=== PATIENT | male | born 1995 | race Hispanic/Latino ===

== ENCOUNTER 2017-01-06 19:25 | Emergency (ER) | payer SELFPAY ==
[~2017-01-06] VITALS: Ht 177.8 cm; Wt 72.7 kg
[~2017-01-06 19:25] MED LIST: CITA20TA PO
[2017-01-06 19:29] VITALS: BP 135/87; PULSE 87; RESP 20; O2SAT 99
--- NOTE | 2017-01-06 19:48 | ED.REPORT ---
HPI-Headache Date of Service January 06, 2017 ED Provider: Scotty Velazquez MD Patient is a 21 year old male who presents to the ED with a severe headache that began at 1300. His pain comes in waxes and wanes and has become increasingly worse since onset. The pain is located in the center of his head and he describes the pain as a pressure. He reports nausea,vomiting, chills, photophobia and left arm numbness. He denies any recent head injury. This is the worst headache the patient has ever experienced. He denies any recent illnesses. He denies any auras or visual disturbances. Nursing Notes Stated Complaint: HEADACHE,VOMITING Chief Complaint: Headache Nursing Notes Reviewed: Yes Allergies: Coded Allergies: No Known Allergies (Verified Allergy, Unknown, 01/06/17) Scheduled Citalopram-Expunged Drug, Do Not Renew! (Citalopram-Expunged Drug, Do Not Renew! ) 20 Mg Tablet 20 MG PO DAILY General Time Seen by MD: 19:38 Chief Complaint Headache Hx Obtained From: Patient Arrived By: Walk-in Sudden in Onset?: Yes Onset Occurred: 5 - 8 hours ago Symptom Duration: Since onset Location: : Frontal left: Frontal right Quality: Pressure Severity: Current: Moderate Severity: Maximum: Moderate Associated with: Reports: Nausea, Vomiting, Denies: Aura motor, Aura sensory, Aura visual, Visual disturbance Pertinent Negative: Pt denies other symptoms Recent Healthcare: No recent doctor visit, No recent hospitalization Risk-Headache )( SAH Risk Stratification RF Statements: Risk factors reviewed )( IC Mass Risk Stratification RF Statements: Risk factors reviewed Past Medical History Past Medical History None reported. Past Surgical History None reported. Smoking History Never Smoker Social History Alcohol Use: Denies alcohol use Drug Use: Denies drug use Other Social History: Good social support, Local resident Ambulatory Status Independent Review of Systems Constitutional: Denies: Chills, Fever Eyes: Reports: Photophobia, Denies: Blurred bilateral, Visual loss bilateral GI: Reports: Nausea, Vomiting Neurologic: Reports: Headache, Denies: Change LOC, Syncope, Vision change Complete sys rev & neg: except as marked. Physical Exam Initial Vital Signs Vital Signs (First) Date Time Temp Pulse Resp B/P Pulse Ox O2 Delivery O2 Flow Rate FiO2 01/06/17 19:29 36.0 87 20 135/87 99 Room Air Initial VS: Reviewed Respiratory: Breath sounds normal, Clear to auscultation, No respiratory distress Cardiovascular: Regular rate & rhythm, Heart sounds normal, Intact distal pulses Extremities: Vascular intact, Neuro intact, No swelling, No tenderness Skin: Warm, Dry, No cyanosis Psychiatric: Mood/affect normal, Behavior normal, Normal thought content General/Constitutional: Awake, Alert, No acute distress, Well appearing, Well developed Head / Eyes: Atraumatic, Normocephalic, PERRL Neck: Atraumatic, Supple, Full range of motion Neurologic: Oriented X3, Speech NL, No motor deficits, No sensory deficits, CN II - XII intact, Reflexes equal bilat, Cerebellar NL, Memory NL NEURO: Thought is linear and organized. Interpretation & Diagnostics Lab Results Interpretation Result Diagram: 01/06/17 1950 01/06/17 1950 Test 01/06/17 19:50 White Blood Count 8.8th/mm3 (3.8-10.1) Red Blood Count 4.99mil/mm3 (4.40-5.80) Hemoglobin 14.2g/dL (13.8-17.2) Hematocrit 41.3% (41.0-50.0) Mean Corpuscular Volume 82.8fL (81-100) Mean Corpuscular Hemoglobin 28.5pg (27.0-35.0) Mean Corpuscular Hemoglobin Concent 34.4% (32.0-37.0) Red Cell Distribution Width 12.9% (12.3-15.4) Platelet Count 217bil/L (150-400) Neutrophils (%) (Auto) 58.6% (40-74) Lymphocytes (%) (Auto) 31.8% (14-46) Monocytes (%) (Auto) 7.5% (4-12) Eosinophils (%) (Auto) 1.7% (0-5) Basophils (%) (Auto) 0.3% (0-3) Erythrocyte Sedimentation Rate 1mm/hr (0-15) Hold Purple Top Tube Received (Received) Hold Blue Top Tube Received (Received) Sodium Level 140mEq/L (134-144) Potassium Level 3.8mEq/L (3.5-5.2) Chloride Level 101mEq/L (97-108) Carbon Dioxide Level 25mmol/L (18-29) Blood Urea Nitrogen 12mg/dL (6-20) Creatinine 1.01mg/dL (0.76-1.27) Estimat Glomerular Filtration Rate 97mL/min (>59) Glucose Level 126mg/dL (60-99) Calcium Level 9.4mg/dL (8.5-10.1) Hold [place] Top Tube Received (Received) Hold [place] Top Tube Received (Received) CT Head Interpretation IMPRESSION: No acute intracranial disease process. Dictated by: Celina Adames MD, PhD on 01/06/2017 at 19:59 Study: Head CT no contrast Interpretation / Wet Read by: Interpret - Radiologist Re-Eval/Medical Decision Med Decision/Clinical Course In summary, the patient is a 21-year-old male with past medical history significant for migraine headaches, who presents with gradual onset headache that is intermittent and exacerbated by light and sound. Our primary and secondary assessment reveals an awake, alert patient in no acute distress. Hemodynamically stable and afebrile. Exam reveals normal neurologic exam. CT head: No acute intracranial disease process. Suspect the patient's headache represents a migraine or tension type headache. Considered other causes of headache to include: Subdural hemorrhage, subarachnoid hemorrhage, BAKER HEAD tumor, meningitis, encephalitis, venous sinus thrombosis, dissection, temporal arteritis, intracranial hypertension ( psuedotumor cerebri), sinusitis or cervicalgia, although these are less likely based on the history, exam and radiographic findings as noted above. Based on this, I feel that further imaging would be low yield and is not warranted at this time. Discussed the risks and benefits of this with the patient who is in agreement. Also discussed with the patient at length that if symptoms change, worsen, or persist, should return to the ER for reevaluation. They understand and agree with the plan. Given the patient's workup, feel they are safe for discharge. The patient was given IV fluids, Reglan/Benadryl and Toradol with excellent resolution of his symptoms. Prior to discharge follow-up and return precautions were reviewed in detail with the patient who verbalized understanding and agreement with the plan. The patient was discharged in stable condition. Re-Evaluation/Progress : Time of Eval: 20:24 )( Patient Status: Condition improved Re-Evaluation/Progress Note: Patient is rechecked. He is informed of his results and diagnosis. All questions are addressed. He understands and agrees with the intended treatment plan. Counseled Regarding: Diagnosis, Need for follow-up, When/why to return to ED Discharge & Departure Impression: Primary Impression: Migraine headache Migraine type: unspecified Status migrainosus presence: without status migrainosus Intractability: not intractable Qualified Code: G43.909 - Migraine, unspecified, not intractable, without status migrainosus Additional Impressions: Sensitivity to light Nausea and vomiting Vomiting type: unspecified Vomiting Intractability: unspecified Qualified Code: R11.2 - Nausea with vomiting, unspecified Disposition: Home Discharge Condition All VS Reviewed: Yes Condition: Improved Patient Instructions: Migraine Headache (ED) Additional Instructions: Thank you for seeking care at the emergency room. It is difficult for us to make definitive diagnoses in the ED but we believe that you are experiencing a migraine headache. Our primary goal today in the ED was to evaluate you for any life-threatening conditions. Your evaluation was reassuring. You will be discharged with a prescription for 600 mg of ibuprofen. Please take as directed. You should follow-up with your primary doctor in the next week. You should return to the ED immediately if you develop any neck stiffness, persistent pain, fevers, vomiting, lightheadedness, weakness or any other concerning signs or symptoms. Thank you for letting us partake in your care today. Referrals: Kanika Lujan MD (PCP) Scribe Attestation Portions of this note were transcribed by Jeannie Montilla. I, Dr. Velazquez personally performed the history, physical exam and medical decision-making; I reviewed and confirmed the accuracy of the information in the transcribed note. Signed by: Miguelito Rinaldi, 01/06/172055. copies to: Kanika Lujan MD, Beck O MD January 06, 2017 19:48 JEANNIE MONTILLA January 06, 2017 20:27
--- NOTE | 2017-01-06 20:02 | DRSVH ---
PROCEDURE: CT BRAIN WITHOUT CONTRAST ([id number]) INDICATIONS: sudden onset extreme headache. TECHNIQUE: Noncontrast 4.5 mm thick angled axial sections acquired from the foramen magnum to the vertex, with c oronal reformats. COMPARISON: None. FINDINGS: Image quality: Excellent. CSF spaces: Basal cisterns are patent. No extra-axial fluid collections. Ventricles are normal in size and shape. Brain: No midline shift. No intracranial masses or hemorrhage. Olivo-white matter interface is norm al. Skull and face: Calvarium and visualized facial bones are intact, without suspicious lesions. Sinuses: Visualized sinuses and mastoids are clear. IMPRESSION: No acute intracranial disease process. Dictated by: Celina Adames MD, PhD on 01/06/2017 at 19:59 Approved by: Celina Adames MD, PhD on 01/06/2017 at 20:00
[2017-01-06 20:21] LABS: BASOPHILS % (AUTO) 0.3 % (0-3); EOSINOPHILS % (AUTO) 1.7 % (0-5); MONOCYTES % (AUTO) 7.5 % (4-12); Mean Corpuscular Hemoglobin 28.5 pg (27.0-35.0); Mean Corpuscular Volume 82.8 fL (81-100); NEUTROPHILS % (AUTO) 58.6 % (40-74); Platelet Count 217 bil/L (150-400)
[2017-01-06] MEDS ORDERED: 0.9% Sodium Chloride 1,000 ML IV ONE (20:27)
[2017-01-06] MEDS ORDERED: MetoCLOpramide 5 mg/mL 2 mL Inj IVPUSH ONE (20:30)
[2017-01-06 20:42] LABS: ERYTHROCYTE SEDIMENTATION RATE 1 mm/hr (0-15)
[2017-01-06] MEDS ORDERED: IBUP-1827 PO (21:47)
[2017-01-06 21:52] VITALS: BP 135/82; PULSE 81; RESP 16; O2SAT 99
== END 2017-01-06 21:53 | disposition home or self-care (01) ==
LOC: SED 19:25
DX: G43.909 Migraine, unspecified, not intractable, without status migrainosus (principal); H53.149 Visual discomfort, unspecified; R11.2 Nausea with vomiting, unspecified
CPT/HCPCS: 36415; 70450; 80048; 85025; 85651; 96361; 96374; 96375; 99285; J1200; J1885; J2765; J7030

== ENCOUNTER 2017-02-05 23:55 | Emergency (ER) | payer SELFPAY ==
[~2017-02-05 23:55] MED LIST changes: +IBUP-1827 PO
--- NOTE | 2017-02-06 00:01 | ED.REPORT ---
HPI-General Illness Date of Service Feb 06, 2017 ED Provider: Manoj Melgar DO Pt is a 21 year old male with a history of seasonal allergies who presents to the ED complaining of a possible overdose of [id number] allergy medication. The pt reports that he has been experiencing rhinorrhea, epistaxis, epiphora, ocular pruritus, and itchy nose. He states that the symptoms are exacerbated during the morning and evening, causing him to take 7-8 tablets of allergy medication (pseudoephedrine hydrochloride extended release tablets - 120 mg) throughout today in attempt to relieve the symptoms. Nursing Notes Stated Complaint: POSSIBLE OVERDOSE ON ALLERGY PILLS Chief Complaint: Allergies OD Nursing Notes Reviewed: Yes Allergies: Coded Allergies: No Known Allergies (Verified Allergy, Unknown, 01/06/17) Scheduled Citalopram-Expunged Drug, Do Not Renew! (Citalopram-Expunged Drug, Do Not Renew! ) 20 Mg Tablet 20 MG PO DAILY Scheduled PRN Ibuprofen (Ibuprofen) 600 Mg Tablet 600 MG PO TID PRN PRN For Pain General Time Seen by MD: 00:01 Chief Complaint Other (Alllergy OD) Hx Obtained From: Patient Arrived By: Walk-in Sudden in Onset?: No Onset Occurred: Just prior to arrival Symptom Duration: Since onset Severity: Current: No pain currently Severity: Maximum: No pain Recent Healthcare: Recent doctor visit Similar Sx Previous: No Past Medical History Past Medical History Seasonal allergies Denies: Congestive heart failure, Diabetes mellitus, Hypertension Past Surgical History None reported. Smoking History Never Smoker Social History Alcohol Use: Denies alcohol use Drug Use: Denies drug use Other Social History: Good social support, Local resident Ambulatory Status Independent Review of Systems + Rhinorrhea + Epiphora + Itchy nose + Ocular pruritus Full Review of Systems Ears / Nose / Throat: Reports: Nose bleeding Complete sys rev & neg: except as marked. Physical Exam Vital Signs Vital Signs Date Time Temp Pulse Resp B/P Pulse Ox O2 Delivery O2 Flow Rate FiO2 02/06/17 00:04 36.6 68 18 129/79 100 Room Air Initial VS: Reviewed Head / Eyes: Atraumatic, Normocephalic, PERRL Neck: Supple, Non-tender, Full range of motion Respiratory: Breath sounds normal, Clear to auscultation, No respiratory distress Cardiovascular: Regular rate & rhythm, Heart sounds normal, Intact distal pulses Abdomen / GI: Soft, Non-tender Extremities: Vascular intact, Neuro intact Skin: Warm, Dry, No cyanosis Neurologic: Alert, Oriented, Nonfocal Psychiatric: Mood/affect normal, Behavior normal General/Constitutional: Awake, Alert, Cooperative ENT: Atraumatic, Airway patent, Mucous membranes moist, Pharynx NL Aside from turbinate, bilateral nasal hypertrophy Interpretation & Diagnostics Lab Results Interpretation Result Diagram: 02/06/17 0028 02/06/17 0028 Test 02/06/17 00:28 White Blood Count 8.5th/mm3 (3.8-10.1) Red Blood Count 5.00mil/mm3 (4.40-5.80) Hemoglobin 14.5g/dL (13.8-17.2) Hematocrit 41.2% (41.0-50.0) Mean Corpuscular Volume 82.4fL (81-100) Mean Corpuscular Hemoglobin 29.0pg (27.0-35.0) Mean Corpuscular Hemoglobin Concent 35.2% (32.0-37.0) Red Cell Distribution Width 12.8% (12.3-15.4) Platelet Count 219bil/L (150-400) Neutrophils (%) (Auto) 53.3% (40-74) Lymphocytes (%) (Auto) 31.6% (14-46) Monocytes (%) (Auto) 9.2% (4-12) Eosinophils (%) (Auto) 5.3% (0-5) Basophils (%) (Auto) 0.2% (0-3) Sodium Level 138mEq/L (134-144) Potassium Level 3.9mEq/L (3.5-5.2) Chloride Level 99mEq/L (97-108) Carbon Dioxide Level 25mmol/L (18-29) Blood Urea Nitrogen 22mg/dL (6-20) Creatinine 0.92mg/dL (0.76-1.27) Estimat Glomerular Filtration Rate 108mL/min (>59) Glucose Level 102mg/dL (60-99) Calcium Level 9.4mg/dL (8.5-10.1) Total Bilirubin 0.4mg/dL (0.0-1.2) Aspartate Amino Transf (AST/SGOT) 32U/L (0-50) Alanine Aminotransferase (ALT/SGPT) 31U/L (0-44) Alkaline Phosphatase 84U/L (25-150) Total Protein 7.3g/dL (6.4-8.4) Albumin 4.6g/dL (3.4-5.0) Hold [place] Top Tube Received (Received) Salicylates Level < 3.0ug/mL (30-250) Acetaminophen Level < 15.0ug/mL Rx (10-25) ECG Interpretation ECG Interpretation: Sinus rhythm with a rate of 59 Time: 00:14 Interpreted by: ED physician Rhythm Strip Interpretation : Rhythm Strip Interpretation: Interpreted by me, Normal sinus rhythm CBC Interpretation CBC normal BMP / CMP Interpretation BMP/CMP normal except, BUN elevated Re-Eval/Medical Decision Med Decision/Clinical Course Greater than 4 hours out from the overdose and there is no signs of cardiac involvement. Vital signs are normal. One felt much better after fluids. I think he is going to do very well. He will not take anymore of the Sudafed for [address] him on Flonase, Patanol and Linda for sinus symptoms. Outpatient follow-up recommended. Source of Hx: Old records Time of Eval: 01:23 Patient Status: Condition improved Re-Evaluation/Progress Note: Pt rechecked. He is feeling much better with the medication provided. His vitals are stable with no signs of complications of the original overdose. Informed pt of plan for discharge. Pt understands and agrees with plan for discharge. F/U instructions and RTER warnings given. All questions addressed. Counseled Regarding: Diagnosis, Lab results, Need for follow-up, When/why to return to ED Discharge & Departure Shift Change Sign-Out Response to Therapy: Improved Primary Impression: Accidental overdose Encounter type: initial encounter Qualified Code: T50.901A - Poisoning by unspecified drugs, medicaments and biological substances, accidental ( unintentional), initial encounter Additional Impression: Environmental allergies Disposition: Home Discharge Condition All VS Reviewed: Yes Condition: Stable Patient Instructions: Adult Overdose (ED), Allergies (ED) Additional Instructions: The EKG and the blood tests were all reassuring. No signs that you have been injured by the unintentional overdose. Do not take any more of the pseudoephedrine for the next 24 hours. You may then take it twice daily as directed. Regarding the allergy symptoms I would like you to apply one drop of Patanol ophthalmic to both eyes twice daily. 2 sprays of Flonase to each nostril once daily. Linda 12 hour tablet taken twice daily. Set up a follow -up with primary care physician and return if any problems or any new worsening symptoms Referrals: [facility] Scribyvrose Attestation Portions of this note were transcribed by Miranda Cox. I, Dr. Melgar personally performed the history, physical exam and medical decision-making; I reviewed and confirmed the accuracy of the information in the transcribed note. Signed by: Miguelito Villalba, 02/06/17 and 02:30 copies to: [facility] Manoj Melgar DO Feb 06, 2017 00:01 Miranda Horan Feb 06, 2017 00:05
[2017-02-06 00:04] VITALS: BP 129/79; PULSE 68; RESP 18; O2SAT 100
[2017-02-06] MEDS ORDERED: 0.9% Sodium Chloride 1,000 ML IV SCH (00:05)
[2017-02-06 00:31] LABS: BASOPHILS % (AUTO) 0.2 % (0-3); EOSINOPHILS % (AUTO) 5.3 % (0-5); MONOCYTES % (AUTO) 9.2 % (4-12); Mean Corpuscular Volume 82.4 fL (81-100); NEUTROPHILS % (AUTO) 53.3 % (40-74); Platelet Count 219 bil/L (150-400)
[2017-02-06 02:00] VITALS: BP 136/85; PULSE 65; RESP 16; O2SAT 99
== END 2017-02-06 01:59 | disposition home or self-care (01) ==
LOC: SED 23:55
DX: T50.901A Poisoning by unspecified drugs, medicaments and biological substances, accidental (unintentional), initial encounter (principal); J30.2 Other seasonal allergic rhinitis; X58.XXXA Exposure to other specified factors, initial encounter; Y93.9 Activity, unspecified; Y92.9 Unspecified place or not applicable; Y99.9 Unspecified external cause status
CPT/HCPCS: 36415; 80053; 85025; 93005; 96360; 99284; G0480; J7030